=== PATIENT | female | born 1990 | race Caucasian/White ===

== ENCOUNTER 2019-10-22 07:50 | Outpatient (CLI) | payer OTHER, SELFPAY ==
--- NOTE | ~2019-10-22 | US_ITS ---
EXAMINATION: US OB <=14 wk fetus w TV DATE: 10/22/2019 08:46 INDICATION: Gestational dating. TECHNIQUE: Real-time transabdominal and transvaginal obstetric ultrasound. FINDINGS: No prior studies for comparison. The uterus measures 10.2 x 7.3 x 5.4 cm. There is an intrauterine gestational sac, with pole id entified. The crown rump length measures 1.88 cm, which correlates with a estimated gestational age of 8 weeks 3 days. heart tones are identified measuring 152 bpm. There is a 1.7 cm corpus lut eal cyst of the right ovary. Small amount of free fluid in the right adnexa. IMPRESSION: 1. SL IUP with an EGA of 8 weeks, 3 days (EDC by current ultrasound of 05/30/2020). Reviewed, dictated and finalized at location I. IMPRESSION: 1. SL IUP with an EGA of 8 weeks, 3 days (EDC by current ultrasound of ).
== END 2019-10-22 07:51 | disposition home or self-care (01) ==
PROVIDERS: Visit Provider Obstetrics & Gynecology
DX: O26.841 Uterine size-date discrepancy, first trimester (principal); Z3A.08 8 weeks gestation of pregnancy
CPT/HCPCS: 76801; 76817

== ENCOUNTER 2020-01-02 10:58 | Outpatient (CLI) | payer OTHER, SELFPAY ==
--- NOTE | ~2020-01-02 | US_ITS ---
EXAMINATION: US OB >= 14 weeks Fetus DATE: 01/02/2020 12:18 INDICATION: survey TECHNIQUE: Multiple obstetric sonographic images performed. FINDINGS: Ultrasound dated 10/22/2019 There is a single living fetus in variable presentation. The placenta is posterior without placenta previa. Placenta is low lying measuring 2.7 cm to the cervix. Amniotic fluid volume is subjectively n ormal. cardiac activity and movement is noted with a heart rate of 135 beats per mi nute. The following anatomy was identified as normal: 4 chamber heart 3 vessel cord cord insertion kidneys urinary bladder stomach spine diaphragm ventricles cisterna magna cerebellum The following biometric data were obtained: BPD: 42mm corresponds to gestational age 18 weeks 4 days. Head circumference: 154 mm corresponds to gestational age 18 weeks 3 days. Abdominal circumference: 130 mm corresponds to gestational age 18 weeks 4 days. Femur length: 28 mm corresponds to gestational age 18 weeks 3 days. Head circumference to abdominal circumference ratio: 1.19 (normal range for expected gestational age is 1.09-1.27). Estimated weight: 242 grams +/- 36 grams using Hadlock method. IMPRESSION: 1: Single living intrauterine with an estimated gestational age of 18weeks 5days by initial ultrasound measurements, with an EDC of 05/30/2020 in variable presentation. 2. Normal survey. Reviewed, dictated and finalized at location B. IMPRESSION: 1: Single living intrauterine with an estimated gestational age of 18 weeks 5days by initial ultrasound measurements, with an EDC of 05/30/2020 in jose alberto iable presentation. 2. Normal survey.
== END 2020-01-02 10:59 | disposition home or self-care (01) ==
LOC: ANHIMG 11:09
PROVIDERS: Visit Provider Obstetrics & Gynecology
DX: Z34.92 Encounter for supervision of normal pregnancy, unspecified, second trimester (principal); Z3A.18 18 weeks gestation of pregnancy
CPT/HCPCS: 76805

== ENCOUNTER 2020-05-23 04:53 | Inpatient (IN) | payer OTHER, SELFPAY ==
[2020-05-23] VITALS (71 sets, daily range): BP systolic 94–153; BP diastolic 56–84; PULSE 51–109; RESP 17–18; TEMP 36.6–37.3; O2SAT 98–100; BMI 26.9
--- NOTE | 2020-05-23 05:13 | LDADM ---
This patient, Annette Sosa, was admitted to Labor/Delivery/Recovery 106 on 05/23/20 at 04:53. Plans for labor, pain management and were discussed with patient. Patient/family oriented to hospital policies and general routines including ID bracelet, bed and alarms, visiting hours, pain management, procedures, bathroom and other care routines, personal items, smoking policy, room service/diet and guest tray routines, security routines, and visiting hours. Patient/Family are encouraged to report perceived risks to care and to ask questions if they do not understand what they are told or what they should do. See OBIX for further documentation.
[2020-05-23] MEDS: OXYTOCIN 30 UNITS/NS 500 ML 30 UNITS/500 ML BAG IV CONT (05:45)
[2020-05-23] MEDS: LACTATED RINGERS 1,000 ML 125 ML IV CONT ×2 (05:45→09:02)
[2020-05-23 05:49] LABS: Basophils Percent Auto 0.4 % (0.2-1.2); Eosinophils Absolute Auto 0.2 K/mm3 (0-0.3); Eosinophils Percent Auto 2.8 % (0-4.4); Hematocrit 34.8 % (37.0-47.0); Immature Granulocyte Absolute 0.04 K/mm3 (0.00-0.031); Immature Granulocyte Percent A 0.5 % (0-0.5); Lymphocytes Absolute Auto 2.03 K/mm3 (0.9-3.2); Lymphocytes Percent Auto 25.1 % (18.3-44.2); Mean Corpuscular HGB Conc 34.5 g/dl (32-36); Mean Corpuscular Volume 89.9 fl (80-100); Mean Platelet Volume 11.7 fl (7.4-10.4); Monocytes Absolute Auto 0.6 K/mm3 (0.1-0.6); Monocytes Percent Auto 7.9 % (2.6-8.5); Neutrophils Absolute Auto 5.1 K/mm3 (1.3-6.7); Neutrophils Percent Auto 63.3 % (45.5-73.1); Platelet Count Result 165 k/mm3 (150-375); Red Blood Count 3.87 M/mm3 (4.2-5.4); Red Cell Distribution Width 12.7 % (11.5-14.5); White Blood Count 8.1 K/mm3 (4.5-10.0)
--- NOTE | 2020-05-23 07:10 | WPDANESEPP ---
Anes - Eval Pre Procedure Procedure: Labor Epidural Date/Time: 05/23/20 07:10 Surgeon: Miles Preop Diagnosis: Labor Pain Pre Op Diagnosis: Induction of Labor Patient Data Age: 29 Gender: F Height: 5 ft 6 in Weight: 75.5 kg Last Vital Signs Pulse 84 05/23/20 07:01 BP 119/70 05/23/20 07:01 Allergies Allergy/AdvReac Type Severity Reaction Status Date / Time amoxicillin Allergy Intermediate HIVES Verified 05/16/20 11:10 Home Medications Medication Instructions Recorded Confirmed Type aspirin 81 mg tablet,delayed 81 mg PO DAILY 12/05/19 05/05/20 History release PNV cmb#95-ferrous fumarate-FA 1 tablet PO DAILY 05/05/20 05/05/20 History [] Laboratory Tests 05/23/20 05/23/20 05:31 05:31 WBC 8.1 K/mm3 K/mm3 (4.5-10.0) RBC 3.87 M/mm3 L M/mm3 (4.2-5.4) Hgb 12.0 g/dL g/dL (12.0-15.0) Hct 34.8 % L % (37.0-47.0) MCV 89.9 fl fl (80-100) MCH 31.0 pg pg (26-34) MCHC 34.5 g/dl g/dl (32-36) RDW 12.7 % % (11.5-14.5) Plt Count 165 k/mm3 k/mm3 (150-375) MPV 11.7 fl H fl (7.4-10.4) Immature Gran % (Auto) 0.5 % % (0-0.5) Neut % (Auto) 63.3 % % (45.5-73.1) Lymph % (Auto) 25.1 % % (18.3-44.2) [place] % (Auto) 7.9 % % (2.6-8.5) Eos % (Auto) 2.8 % % (0-4.4) Baso % (Auto) 0.4 % % (0.2-1.2) Lymph # (Auto) 2.03 K/mm3 K/mm3 (0.9-3.2) [place] # (Auto) 0.6 K/mm3 K/mm3 (0.1-0.6) Eos # (Auto) 0.2 K/mm3 K/mm3 (0-0.3) Baso # (Auto) 0.0 K/mm3 K/mm3 (0.0-0.1) Abs Immat Gran (auto) 0.04 K/mm3 H K/mm3 (0.00-0.031) Absolute Neuts (auto) 5.1 K/mm3 K/mm3 (1.3-6.7) Absolute Nucleated RBC 0.0 K/mm3 K/mm3 (0.0-0.012) Nucleated RBC % 0.0 % % (0.0-0.2) RPR Pending : gestational age (KEVIN 05/30/20, ) Patient hx anesthesia problems: none Family hx anesthesia problems: none PMFSH Past Medical History Medical History Anemia with in 2017 Asthma sport induced Vaginal delivery 01/02/2017. , Female, Full term, 7#2 Family History Family History Grandparent Diabetes mellitus Father High cholesterol Social History Social History Smoking status: Never smoker Second hand tobacco smoke exposure: No Alcohol intake: former Substance use: never Gender identity (if verbalized by the patient): Female Spiritual care concerns: No Exam Day of Procedure 05/23/20 07:10 Patient weight: normal Heart: regular rate and rhythm Lungs: normal air movement Airway: Mallampati scale class II Neurological: alert and oriented
--- NOTE | 2020-05-23 08:13 | WPDOBADMIT ---
Obstetrics - Admit Note Admission Note: record reviewed. No pertinent additions to the history and/or any subsequent changes in the physical findings that are not consistent with the expected course of the were found. Additions to the history and/or subsequent changes in the physical findings follow. at 39 weeks for elective induction of labor. Cervix 2-3/50/-2. AROM with clear fluid. GBS+ and PCN allergic. Sensitive to clindamycin but vancomycin already given, so she is being treated. Continue vancomycin until delivery
--- NOTE | 2020-05-23 09:13 | WPDANESEFPP ---
Anes - Eval Final PreProcedure Day of Procedure 05/23/20 09:13 Patient weight: overweight Heart: regular rate and rhythm Lungs: clear to auscultation Neurological: alert and oriented ASA classification: II Emergent: no Anesthetic plan: proceed Anesthesia type and monitoring: regional epidural and standard monitoring Informed Consent: The patient's anesthetic plan and its attendant risks and benefits were discussed with the patient/family/POA. Questions were solicited and answers provided to the satisfaction of the patient/family/POA.
--- NOTE | 2020-05-23 14:33 | PM.OBPRVD ---
OB - Delivery Note Procedure Delivery date: 05/23/20 Procedure: events: Labor Induction Intrapartal events: None Induction method: AROM and per pitocin protocol Delivery monitor: external FHT and external uterine Route of delivery: Laceration Description: Periurethral (left) and Perineal - 2nd Degree Delivery repair: vicryl (2-0 perineal, 3-0 periurethral) Specimen: No Quantitative Blood Loss (ml): 238 Anesthesia type: Epidural Disposition: floor Baby Date of : 05/23/20 Time of : 14:06 Weeks of gestation at delivery: 39 gender: Male Weight (pounds): 7 Weight (ounces): 11 presentation: vertex position: Left Occiput Anterior Placenta delivery description: Spontaneous cord vessel description: 3 Vessels and Clamped/Cut score one minute: 4 score five minutes: 7
[2020-05-23] MEDS: OXYTOCIN 30 UNITS/NS 500 ML 30 UNITS/500 ML BAG 125 UNITS IV CONT (14:48)
--- NOTE | 2020-05-23 17:40 | OBPPTRN ---
Patient transferred to post room # 292 via wheelchair. Support person present. Oriented to unit, room, information board, rooming in, admission packet and security measures. Patient verbalizes understanding.
[2020-05-23] MEDS: IBUPROFEN 600 MG TABLET PO (19:20)
[2020-05-24 00:15] VITALS: BP 120/74; PULSE 72; RESP 16; TEMP 36.8
[2020-05-24] MEDS: IBUPROFEN 600 MG TABLET PO ×2 (05:12→11:51)
[2020-05-24 05:48] LABS: Hematocrit 29.4 % (37.0-47.0); Hemoglobin 9.9 g/dL (12.0-15.0)
[2020-05-24 07:59] LABS: Rapid Plasma Reagin Non-Reactive (NonReactive)
[2020-05-24 08:30] VITALS: BP 121/74; PULSE 80; RESP 18; TEMP 37.1; O2SAT 99
--- NOTE | 2020-05-24 08:42 | WPDANLDPN2 ---
Anes-Prog Note L&D Date/Time: 05/24/20 08:42 Comfortable throughout: labor and delivery Neuraxial method: epidural Epidural/Spinal procedure site: clean & non-tender Neuro status: Neuro function grossly intact. Cardiovascular status: normal Respiratory status: normal Airway patency: baseline Mental status: baseline Post-Op hydration status: normal Vital Signs: Last Vital Signs Temp 98.3 F 05/24/20 00:15 Pulse 72 05/24/20 00:15 Resp 16 05/24/20 00:15 BP 120/74 05/24/20 00:15 Pulse Ox 100 05/23/20 09:35 Pain score (VAS): 0/10 I/O: Intake & Output 05/23/20 05/24/20 05/24/20 23:59 07:59 15:59 Output Total 122 Balance -122 Post-procedural complaints: none Patient feedback: Patient satisfied with anesthetic care.
[2020-05-24] MEDS: POLYSACCHARIDE IRON COMPLEX 150 MG CAPSULE PO (08:45)
[2020-05-24] MEDS: MULTIVIT/MIN/PREN/FOL AC/IRON TABLET 1 TAB PO (08:46)
[2020-05-24] MEDS: DOCUSATE SODIUM 100 MG CAPSULE PO (08:46)
--- NOTE | 2020-05-24 08:51 | P.PNOB_ITS ---
OB - PN: Subj Subjective Date/time seen: 05/24/20 08:51 Patient comments: pain well controlled, tolerating diet and flatus present baby status: doing well feeding status: pumping and storing Narrative: Pain well controlled Tolerating regular diet Ambulating and urinating without difficulty Lochia like her menses Baby boy Transferred to [facility]. OB - PN: Obj Data Labs CBC & Chem 7: 05/24/20 05:18 Labs: Laboratory Results - last 24 hr 05/23/20 05/24/20 05:31 05:18 Hgb 9.9 L Hct 29.4 L RPR Non-reactive OB - PN A/P Plan day: 1 Plan: discharge home and follow up 6 weeks Comments: Pt would desire to go home BF instructed Time Spent With Patient Time: Total time spent is greater than 50% in coordination of care (as documented) at patient's floor/unit and/or counseling patient: Time with patient: 15 - 25 minutes Review of Systems Constitutional: Constitutional: Reports as per HPI, Denies chills, Denies fever(s) and Denies headache(s) Eyes: Eyes: Denies blind spots, Denies blurry vision and Denies change in vision ENT: Reports Normal hearing present Cardiovascular: Cardiovascular: Denies chest pain, Denies leg edema, Denies lightheadedness and Denies dyspnea Respiratory: Respiratory: Denies cough and Denies dyspnea Gastrointestinal: Gastrointestinal: Reports as per HPI Genitourinary: Genitourinary: Reports as per HPI Exam Const: General: cooperative, healthy appearing, comfortable, no acute distress, well developed, alert, awake and Physically active Nutritional Appearance: well nourished Orientation/consciousness: patient oriented x3 Limitations: no limitations HENMT: Head: normal to inspection Resp: Effort & Inspection: normal respiratory effort and able to speak in complete sentences Auscultation: clear to auscultation bilaterally Cardio: Rate: regular rate Rhythm: regular rhythm GI: Inspection: normal to inspection GI Palp: No abdominal tenderness, Yes Soft to palpation, No Tenderness to palpation present (GI) and Yes Other GI p alpation findings present (Fundus firm and below umbilicus) Auscultation: normal bowel sounds Rectal Exam: deferred
--- NOTE | 2020-05-24 08:54 | PM.OBDSVD ---
DS: Admitting Diagnosis Admitting Diagnosis Admitting Diagnosis: Induction of labor at 39 weeks OB - DS: Summary OB Procedures : None OB Procedures Intrapartum: Spontaneous Vag Delivery OB Procedures: : None Peripartum Data Delivery Method: Natural Vaginal Laceration Description: Perineal - 2nd Degree complications: none Status at Discharge Functional status at discharge: independent ambulation Overall status at discharge: patient is progressing back to baseline Time Spent with Patient Time attestation: Total time spent providing and/or coordinating discharge services: Exam Const: General: cooperative, healthy appearing, comfortable, no acute distress, well developed, alert, awake, Physically active and well groomed Nutritional Appearance: well nourished Orientation/consciousness: patient oriented x3 Limitations: no limitations HENMT: Head: normal to inspection Resp: Effort & Inspection: normal respiratory effort and able to speak in complete sentences Auscultation: clear to auscultation bilaterally Cardio: Rate: regular rate Rhythm: regular rhythm GI: Inspection: normal to inspection GI Palp: No abdominal tenderness, Yes Soft to palpation and Yes Other GI palpation findings present (Fundus firm below umbilicus) Auscultation: normal bowel sounds Rectal Exam: deferred Skin: General skin exam: normal color Neuro: General: oriented to person, oriented to place, oriented to time and patient oriented x3 Cognition (Neuro): normal cognition Speech: normal speech Gait exam (Neuro): Normal gait present Extrem: General: normal to inspection, full ROM and no calf tenderness Right upper extremity: normal to inspection and full ROM Left upper extremity: normal to inspection and full ROM Psych: Appearance: grossly normal Mental Status: mental status grossly normal Speech and movement: Normal speech and movement present Affect: normal affect Attitude: cooperative Thought process: Normal thought process present Thought content: Yes Normal thought content present Insight: Good insight present (Psych) Judgement: Good judgement present (Psych) DS: Data Data Completed and Pending Pending studies at discharge: Pending at discharge 05/23/20 17:31 Surgical [PTH] Routine Labs on day of discharge: Labs from last 24 hours 05/24/20 05/23/20 05:18 05:31 Hgb 9.9 L Hct 29.4 L RPR Non-reactive Discharge Plan Discharge Attending physician on discharge: Camila Bunch Discharging Clinician: Camila Bunch Patient Disposition: Home, Self-Care Activity: pelvic rest Diet: regular Patient Instructions: Antibiotic Form Stand Alone Forms: General Discharge Information Follow-up/Referrals: Arti Aquino MD [Physician] - Discharge Medications: New ibuprofen 600 mg Tablet 600 mg PO Q6H PRN (Reason: Cramping) Qty: 60 RF: 0 docusate sodium 100 mg Capsule 100 mg PO BID PRN (Reason: Constipation) Qty: 60 RF: 0 polysaccharide iron complex 150 mg iron Capsule 150 mg PO BIDWM Qty: 60 RF: 0 Continued PNV cmb#95-ferrous fumarate-FA [] 28 mg iron- 800 mcg Tablet 1 tablet PO DAILY RF: 0 Discontinued aspirin 81 mg tablet,delayed release (DR/EC) 81 mg PO DAILY RF: 0 Date of admission: 05/23/20 04:53 Primary Care Provider: PHYSICIAN,[employer]OVING [employer] Admitting Provider: Arti Aquino Attending physician on admission: Arti Aquino Condition: Stable
[2020-05-26 11:54] VITALS: BP 127/71; PULSE 74; RESP 16; TEMP 37.4; O2SAT 99
== END 2020-05-24 13:00 | disposition home or self-care (01) | DRG 807 ==
LOC: ANHOB2 05-24 12:48 → ANHLDR 05-25 11:04 → ANHOB2 05-25 11:04
PROVIDERS: Admitting Provider Obstetrics & Gynecology; Visit Provider Obstetrics & Gynecology
DX: O99.824 Streptococcus B carrier state complicating childbirth (principal); Z37.0 Single live birth; Z3A.39 39 weeks gestation of pregnancy; O70.1 Second degree perineal laceration during delivery
CPT/HCPCS: 36415; 85014; 85018; 85025; 86592; 86850; 86900; 86901; A9270; J2590; J2795; J3370; J7120